=== PATIENT | female | born 1955 | race Caucasian/White ===

== ENCOUNTER 2019-06-18 08:05 | Day surgery (SDC) | payer BC ==
[~2019-06-18] VITALS: Ht 160 cm; Wt 51.2 kg
[~2019-06-18 08:05] MED LIST: BONIVA150 MG PO; MEDROL 4MG DOSPA4 MG PO; NORCO 325 MG-51 TAB PO; PRILOSEC 20MG20 MG PO; ZOCOR 10MG10 MG PO; ZOCOR5 MG
[2019-06-18] MEDS ORDERED: ZOCOR 20MG20 MG PO (08:20)
[2019-06-18 08:29] VITALS: BP 126/66; PULSE 77; TEMP 98.3
[2019-06-18 09:35] VITALS: BP 119/76; PULSE 70
--- NOTE | 2019-06-18 09:35 | NUR ---
Pt arrived back to room post colonoscopy via cart with Endo RN. Pt ambulated easily with one touch assist to chair. VSS and WNL and this RN received report from Endo RN at chair side. Call light and with pt and reviewed discharge goals. Pt agrees with plan and expresses understanding.
[2019-06-18 09:45] VITALS: BP 121/73; PULSE 69
--- NOTE | 2019-06-18 09:45 | NUR ---
Pt sitting comfortably in chair, drinking water, and denies pain or nausea. VSS and WNL. Pt states that she is ready to go home.
[2019-06-18 10:03] VITALS: BP 126/75; PULSE 63
--- NOTE | 2019-06-18 10:03 | NUR ---
Pt sitting comfortably in chair and meets criteria for discharge. VSS and WNL. Dr. Cason at bedside with pt and . Reviewed discharge information with patient including signs/symptoms to watch for and when to call the dr and go to ED. Pt agrees with plan and expresses understanding of the plan.
== END 2019-06-18 10:15 | disposition home or self-care (01) ==
LOC: SDCO 08:05
DX: Z12.11 Encounter for screening for malignant neoplasm of colon (principal); K21.9 Gastro-esophageal reflux disease without esophagitis; M19.90 Unspecified osteoarthritis, unspecified site; Z80.0 Family history of malignant neoplasm of digestive organs; Z86.010 Personal history of colon polyps; Z90.710 Acquired absence of both cervix and uterus; Z88.1 Allergy status to other antibiotic agents; E78.5 Hyperlipidemia, unspecified
CPT/HCPCS: J2704; J7030